=== PATIENT | female | born 1935 | race Caucasian/White ===

== ENCOUNTER 2017-04-09 14:07 | Inpatient (IN) | payer OTHER ==
[~2017-04-09] VITALS: Ht 134.6 cm; Wt 43.3 kg
[2017-04-09 16:00] VITALS: PULSE 60
[2017-04-09 16:01] VITALS: Ht 134.6 cm; Wt 43.3 kg
[2017-04-09 16:19] VITALS: BP 131/62; RESP 20
[2017-04-09 16:37] VITALS: PULSE 50
[2017-04-09] MEDS ORDERED: ONDANSETRON 4 MG INJ IV PRN (17:00)
[2017-04-09] MEDS ORDERED: NACL 0.9% 3 ML SYG IV SCH (17:00)
[2017-04-09] MEDS ORDERED: ACETAMINOPHEN 325 MG TAB PO PRN (17:00)
[2017-04-09] MEDS ORDERED: MAGNESIUM HYDROXIDE 30ML CUP PO PRN (17:00)
--- NOTE | 2017-04-09 17:00 | QN ---
Documentation Comment h and P done [id number]# TANVIR BARCLAY MD Apr 09, 2017 17:00
[2017-04-09 20:00] VITALS: BP 135/66; PULSE 71; PULSE 72
[2017-04-09 20:12] VITALS: BP 135/66; RESP 20
[2017-04-09] MEDS ORDERED: LORAZEPAM 0.5 MG TAB PO PRN (21:30)
[2017-04-09] MEDS: FAMOTIDINE 20 MG INJ IV SCH (21:56)
[2017-04-09] MEDS: LEVETIRACETAM 500 MG TAB PO SCH (21:56)
[2017-04-09 22:00] VITALS: BP 139/89; PULSE 91; RESP 20
[2017-04-10] VITALS (19 sets, daily range): BP systolic 97–161; BP diastolic 48–98; PULSE 71–103; RESP 18–20
--- NOTE | 2017-04-10 01:57 | HP ---
DATE OF ADMISSION: 04/09/2017 Patient is transferred from [facility] for subdural hematoma. HISTORY OF PRESENT ILLNESS: This is an 81-year-old female with a past medical history of Alzheimer' s disease, hypertension, who initially presented to [facility] 3 days ago secondary to he adaches for the past few months. The patient was seen by PCP who ordered MRI of the brain. MRI of the brain had shown subdural hematoma and she was referred to ER and [facility]. Upon ar rival in [facility], CT of the head was done that showed subdural hematoma and patient wa s admitted to ICU. The patient was also seen by neurosurgery and neurology and because of the small bleed, there was no need of surgical intervention. Patient was kept on Keppra initially and was al so started on IV steroids. The patient had a repeat CT of the head done today that showed a left ce rebral convexity 12 mm subacute hematoma tracking along the posterior is not significantly zoran nged in size . When remeasured, similarly chronic appearing right cerebral convexity 9 mm subd ural hematoma is also not significantly changed in size, and patient was sent in to [facility] for insurance reasons. Currently, the patient is in restraints. Patient is awake, alert, orien eden x1, able to follow commands, that is baseline according to the family. PAST MEDICAL HISTORY: 1. Hypertension. 2. Alzheimer's dementia. 3. Subdural hematomas. ALLERGIES: PENICILLIN. MEDICATIONS: At [facility] were: 1. Cholecalciferol. 2. Donepezil 10 mg oral daily. 3. Keppra 500 b.i.d. 4. Lisinopril 10. 5. Memantine 10. 6. Pantoprazole 40. SOCIAL HISTORY: No history of smoking. PAST SURGICAL HISTORY: Finger surgery, hysterectomy and left hand surgery. SOCIAL HISTORY: No history of smoking, alcohol or any drug use. Currently lives at home with her marielena matson. According to the , he helps her with carrying out day to day activities. FAMILY HISTORY: Noncontributory. REVIEW OF SYSTEMS: Unobtainable. PHYSICAL EXAMINATION: VITAL SIGNS: Blood pressure 131/60, heart rate 77, respirations 20, afebrile. GENERAL: Patient is awake, alert, oriented x1, that is normal according to the family. NECK: Supple. No JVD. HEART: Regular rate and rhythm. LUNGS: Clear to auscultate bilaterally. ABDOMEN: Soft, nontender, nondistended. EXTREMITIES: No clubbing, cyanosis or edema. NEUROLOGIC: The patient is able to follow some basic commands, oriented x1. No focal weakness. Se nsation intact. DIAGNOSTIC DATA: No labs currently. ASSESSMENT AND PLAN: This is an 81-year-old female with: 1. 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 2. Hypertension. 3. Alzheimer's dementia. PLAN: At this period of time, patient is admitted to [facility] unit. Per neurosurgery note in [facility], there is no surgery intervention needed. Patient may be monitored in ICU until deemed to be medically stable for either transfer to the floor or rehabilitation. She is cleared from neur osurgical standpoint for transfer. We will continue the patient on Keppra, lisinopril, memantine, d onepezil, pantoprazole. We will call neurosurgery consultation with Dr. Gage here, and we will a lso call neurology consultation here. Rest of the treatment will depend on the patient's hospitaliz ation course. Dictated By: TANVIR PASCUAL/ISAAK Conf#: [id number] DID#: [id number] CC: MEKHI JACKSON MD;*End*
[2017-04-10 08:03] LABS: ABNORMAL IP MESSAGE 1; BASOPHILS % 0.1 % (0.0-2.0); EOSINOPHILS # 0.1 10^3/ul (0.0-0.5); EOSINOPHILS % 0.4 % (0.0-7.0); HEMATOCRIT 32.7 % (37.0-47.0); HEMOGLOBIN 10.2 g/dl (12.0-16.0); LYMPHOCYTES % 14.5 % (15.0-51.0); MEAN CORPUSCULAR HEMOGLOBIN 29.6 pg (29.0-33.0); MEAN CORPUSCULAR HGB CONC 31.2 g/dl (32.0-37.0); MEAN CORPUSCULAR VOLUME 94.8 fl (82.0-101.0); MEAN PLATELET VOLUME 10.8 fl (7.4-10.4); MONOCYTE # 1.5 10^3/ul (0.3-0.9); NEUTROPHIL # 10.2 10^3/ul (1.6-7.5); NEUTROPHILS % 73.6 % (39.0-77.0); PLATELET COUNT 248 10^3/UL (140-415); RED BLOOD COUNT 3.45 10^6/ul (4.20-5.40); RED CELL DISTRIBUTION WIDTH 13.4 % (11.5-14.5); WHITE BLOOD COUNT 13.8 10^3/ul (4.8-10.8)
[2017-04-10 09:03] LABS: POSITIVE DIFF @See below
[2017-04-10 09:22] LABS: ALBUMIN/GLOBULIN RATIO 1.29; BILIRUBIN,INDIRECT 0.3 mg/dl (0-1.1); BILIRUBIN,TOTAL 0.3 mg/dl (0.2-1.3); CREATININE 0.64 mg/dl (0.44-1.00); MAGNESIUM 1.9 mg/dl (1.7-2.5); PHOSPHORUS 2.5 mg/dl (2.5-4.9); POTASSIUM 4.8 mmol/L (3.5-5.1); TOTAL PROTEIN 7.1 g/dl (6.1-8.1)
[2017-04-10] MEDS: FAMOTIDINE 20 MG INJ IV SCH ×2 (09:22→21:44)
[2017-04-10] MEDS: LEVETIRACETAM 500 MG TAB PO SCH ×2 (09:22→21:44)
[2017-04-10] MEDS: MEMANTINE 10 MG TAB PO SCH (09:23)
[2017-04-10] MEDS: DONEPEZIL 10 MG TAB PO SCH (09:24)
[2017-04-10] MEDS: LISINOPRIL 10 MG TAB PO SCH (09:26)
--- NOTE | 2017-04-10 11:22 | PN ---
Date/Time of Note Date/Time of Note DATE: 04/10/17 TIME: 11:22 Assessment/Plan VTE Prophylaxis VTE Prophylaxis Intervention: contraindicated Lines/Catheters IV Catheter Type (from Nrs): Saline Lock Urinary Cath still in place: Yes Reason Cath still needed: urinary retention Assessment/Plan Chief Complaint/Hosp Course This is an 81-year-old female with: 1. 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 2. Hypertension. 3. Alzheimer's dementia. 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 - c/w Keppra - restraint - Bed rest Problems: Subjective 24 Hr Interval Summary Free Text/Dictation No new complains Exam/Review of Systems Vital Signs Vitals Vital Signs Date Time Temp Pulse Resp B/P Pulse Ox O2 Delivery O2 Flow Rate FiO2 04/10/17 08:00 97.5 80 20 140/63 99 Intake and Output 04/09/17 04/09/17 04/10/17 15:00 23:00 07:00 Intake Total 500 ml Output Total 850 ml Balance -350 ml Exam awake and alert only oriented to her name not to hospital or the date restrained and attempting to get out of bed Reflexes 2+ throughout toes down coord unable to assess Results Result Diagram: 04/10/17 0653 04/10/17 0657 Results 24 hrs Laboratory Tests Test 04/10/17 06:53 04/10/17 06:57 White Blood Count 13.8 H Red Blood Count 3.45 L Hemoglobin 10.2 L Hematocrit 32.7 L Mean Corpuscular Volume 94.8 Mean Corpuscular Hemoglobin 29.6 Mean Corpuscular Hemoglobin Concent 31.2 L Red Cell Distribution Width 13.4 Platelet Count 248 Mean Platelet Volume 10.8 H Neutrophils % 73.6 Lymphocytes % 14.5 L Monocytes % 11.0 Eosinophils % 0.4 Basophils % 0.1 Nucleated Red Blood Cells % 0.0 Neutrophils # 10.2 H Lymphocytes # 2.0 Monocytes # 1.5 H Eosinophils # 0.1 Basophils # 0.0 Nucleated Red Blood Cells # 0.0 Sodium Level 146 H Potassium Level 4.8 Chloride Level 109 Carbon Dioxide Level 24 Anion Gap 18 H Blood Urea Nitrogen 19 Creatinine 0.64 Glucose Level 101 Calcium Level 9.0 Phosphorus Level 2.5 Magnesium Level 1.9 Total Bilirubin 0.3 Direct Bilirubin 0.00 Indirect Bilirubin 0.3 Aspartate Amino Transf (AST/SGOT) 31 Alanine Aminotransferase (ALT/SGPT) 68 Alkaline Phosphatase 114 Total Protein 7.1 Albumin 4.0 Globulin 3.10 Albumin/Globulin Ratio 1.29 Medications Medications Current Medications Ondansetron HCl (Zofran Inj) 4 mg Q6H PRN IV NAUSEA AND/OR VOMITING; Start at 17:00 Acetaminophen (Tylenol Tab) 650 mg Q6H PRN PO PAIN LEVEL 1-3 OR FEVER; Start 04/09/17 at 17:00 Magnesium Hydroxide (Milk Of Mag) 30 ml DAILY PRN PO CONSTIPATION; Start 04/09 at 17:00 Famotidine (Pepcid Iv) 20 mg Q12 IV Last administered on 04/10/17 09:22; Admin Dose 20 MG; Start 04/09/17 at 21:00 Donepezil HCl (Aricept) 10 mg DAILY PO Last administered on 04/10/17 09:24; Admin Dose 10 MG; Start 04/10/17 at 09:00 Levetiracetam (Keppra) 500 mg BID PO Last administered on 04/10/17 09:22; Admin Dose 500 MG; Start 04/09/17 at 21:00 Lisinopril (Zestril) 10 mg DAILY PO Last administered on 04/10/17 09:26; Admin Dose 10 MG; Start 04/10/17 at 09:00 Memantine (Namenda) 10 mg DAILY PO Last administered on 04/10/17 09:23; Admin Dose 10 MG; Start 04/10/17 at 09:00 TANVIR BARCLAY MD Apr 10, 2017 11:22
--- NOTE | 2017-04-10 12:09 | CONS ---
Date/Time of Note Date/Time of Note DATE: 04/10/17 TIME: 12:04 Assessment/Plan Assessment/Plan Chief Complaint/Hosp Course 81 yo female with headaches for a few months admitted to outside hospital found to have bilateral subdural hematoma. No surgical intervention was advised she was placed on seizure ppx. Recommendations: continue off antiplatelet agents avoid any NSAIDS Keppra may taper off after 7 days unable to view imaging from OSH would recommend repeat Head CT to ensure stability DVT ppx SCD Problems: Consultation Date/Type/Reason Admit Date/Time Apr 09, 2017 at 15:26 Date of Consultation: Apr 10, 2017 Type of Consultation: Neurology Reason for Consultation evaluation for SDH Referring Provider: TANVIR BARCLAY MD Hx of Present Illness 81 yo female with hx of advanced dementia, HTN presented to [facility] 3 days ago for headaches ongoing for a few months. MRI Brain was done there that showed subdural hematoma, evaluated by neurosurgery and neurology there no surgical intervention was advised. Per reported she has left cerebral convexity 12 mm subacte hematoma, right cerebral convex hematoma 9 mm not changed in size. She was started on Keppra 500 mg q12h and tx here for further care. She remains agitated and delirious. agitated delirious Social History Smoking Status: Never smoker Exam/Review of Systems Vital Signs Vitals Vital Signs Date Time Temp Pulse Resp B/P Pulse Ox O2 Delivery O2 Flow Rate FiO2 04/10/17 08:00 97.5 80 20 140/63 99 Intake and Output 04/09/17 04/09/17 04/10/17 15:00 23:00 07:00 Intake Total 500 ml Output Total 850 ml Balance -350 ml Exam awake and alert thin appears stated age only oriented to her name not to hospital or the date restrained and attempting to get out of bed CN: CASSY blinks to threat no facial asymmetry Motor: anti-gravity in both arms and legs w/d appropriately Reflexes 2+ throughout toes down coord unable to assess Results Result Diagram: 04/10/17 0653 04/10/17 0657 Results 24 hrs Laboratory Tests Test 04/10/17 06:53 04/10/17 06:57 White Blood Count 13.8 H Red Blood Count 3.45 L Hemoglobin 10.2 L Hematocrit 32.7 L Mean Corpuscular Volume 94.8 Mean Corpuscular Hemoglobin 29.6 Mean Corpuscular Hemoglobin Concent 31.2 L Red Cell Distribution Width 13.4 Platelet Count 248 Mean Platelet Volume 10.8 H Neutrophils % 73.6 Lymphocytes % 14.5 L Monocytes % 11.0 Eosinophils % 0.4 Basophils % 0.1 Nucleated Red Blood Cells % 0.0 Neutrophils # 10.2 H Lymphocytes # 2.0 Monocytes # 1.5 H Eosinophils # 0.1 Basophils # 0.0 Nucleated Red Blood Cells # 0.0 Sodium Level 146 H Potassium Level 4.8 Chloride Level 109 Carbon Dioxide Level 24 Anion Gap 18 H Blood Urea Nitrogen 19 Creatinine 0.64 Glucose Level 101 Calcium Level 9.0 Phosphorus Level 2.5 Magnesium Level 1.9 Total Bilirubin 0.3 Direct Bilirubin 0.00 Indirect Bilirubin 0.3 Aspartate Amino Transf (AST/SGOT) 31 Alanine Aminotransferase (ALT/SGPT) 68 Alkaline Phosphatase 114 Total Protein 7.1 Albumin 4.0 Globulin 3.10 Albumin/Globulin Ratio 1.29 Medications Medications Current Medications Ondansetron HCl (Zofran Inj) 4 mg Q6H PRN IV NAUSEA AND/OR VOMITING; Start at 17:00 Acetaminophen (Tylenol Tab) 650 mg Q6H PRN PO PAIN LEVEL 1-3 OR FEVER; Start 04/09/17 at 17:00 Magnesium Hydroxide (Milk Of Mag) 30 ml DAILY PRN PO CONSTIPATION; Start 04/09 at 17:00 Famotidine (Pepcid Iv) 20 mg Q12 IV Last administered on 04/10/17 09:22; Admin Dose 20 MG; Start 04/09/17 at 21:00 Donepezil HCl (Aricept) 10 mg DAILY PO Last administered on 04/10/17 09:24; Admin Dose 10 MG; Start 04/10/17 at 09:00 Levetiracetam (Keppra) 500 mg BID PO Last administered on 04/10/17 09:22; Admin Dose 500 MG; Start 04/09/17 at 21:00 Lisinopril (Zestril) 10 mg DAILY PO Last administered on 04/10/17 09:26; Admin Dose 10 MG; Start 04/10/17 at 09:00 Memantine (Namenda) 10 mg DAILY PO Last administered on 04/10/17 09:23; Admin Dose 10 MG; Start 10/19/17 at 09:00 STELLA AVILES MD Apr 10, 2017 12:09
--- NOTE | 2017-04-10 12:48 | RADRPT ---
PROCEDURE: CT BRAIN WITHOUT CONTRAST. CLINICAL INDICATION: Headache. History of subdural. Evaluate progression. TECHNIQUE: A CT of the brain was performed on a multidetector high-resolution CT scanner utilizing axial imaging from the skull base through the vertex without IV contrast. Multiplanar reformatted images were made. Images were reviewed on a PACS workstation. The CTDIvol is 89 mGy and the DLP is 720.2 mGycm. One or more of the following dose reduction techniques were used: - Automated exposure control. - Adjustment of the mA and/or kV according to patient size. - Use of iterative reconstruction technique. COMPARISON: None FINDINGS: The posterior fossa structures are unremarkable. The neeraj, midbrain, and medulla appear to be with n ormal limits. There is a moderate-sized left-sided acute on subacute subdural hematoma, with widest diameter measu ring up to 1.3 cm. Layering acute component is noted within the left frontal region and posterior oc cipital regions. There is diffuse cortical atrophy. No evidence of mass effect or midline shift. Int racranial atherosclerotic calcifications are noted. There also appears to be a small right-sided sub acute to chronic high parietal subdural hematoma, with widest diameter measuring 5 mm, best seen on coronal reconstruction image number 57. The visualized paranasal sinuses are clear. The mastoid air cells are well-aerated. The calvarium is unremarkable. IMPRESSION: 1. Moderate sized left-sided acute on subacute subdural hematoma, with widest diameter measuring up to 1.3 cm. Acute components are noted within the left frontal and left occipital regions. 2. Diffuse cortical atrophy. There is no evidence of significant mass effect or midline shift. 3. Probable small right-sided subacute to chronic high right parietal subdural hematoma, widest diam eter measuring 5 mm and best seen on coronal reconstruction. 4. No priors for comparison to assess for progression. RPTAT: AARR Physician Pipe Date Time Electronically viewed and signed by Physician Pipe on 04/10/2017 12:48 JL/
[2017-04-11] VITALS (16 sets, daily range): BP systolic 113–149; BP diastolic 56–64; PULSE 63–121; RESP 16–20
[2017-04-11] MEDS: DONEPEZIL 10 MG TAB PO SCH (08:55)
[2017-04-11] MEDS: FAMOTIDINE 20 MG INJ IV SCH (08:55)
[2017-04-11] MEDS: LEVETIRACETAM 500 MG TAB PO SCH (08:55)
[2017-04-11] MEDS: MEMANTINE 10 MG TAB PO SCH (08:56)
[2017-04-11] MEDS: LISINOPRIL 10 MG TAB PO SCH (08:56)
--- NOTE | 2017-04-11 13:32 | CONS ---
Date/Time of Note Date/Time of Note DATE: 04/11/17 TIME: 13:29 Consult Date/Type/Reason Admit Date/Time Apr 09, 2017 at 15:26 Initial Consult Date 04/10/17 Type of Consultation: Neurology Ordering Provider: TANVIR BARCLAY MD Subjective No events, no headaches, repeat CT pending. Sleepy on Keppra Objective Vital Signs Date Time Temp Pulse Resp B/P Pulse Ox O2 Delivery O2 Flow Rate FiO2 04/11/17 12:00 77 04/11/17 11:54 97.7 20 149/64 99 Intake and Output 04/10/17 04/10/17 04/11/17 15:00 23:00 07:00 Intake Total 350 ml 450 ml Output Total 750 ml 700 ml Balance -400 ml -250 ml Results/Medications Result Diagram: 04/10/17 0653 04/10/17 0657 Medications Current Medications Ondansetron HCl (Zofran Inj) 4 mg Q6H PRN IV NAUSEA AND/OR VOMITING; Start at 17:00 Acetaminophen (Tylenol Tab) 650 mg Q6H PRN PO PAIN LEVEL 1-3 OR FEVER; Start 04/09/17 at 17:00 Magnesium Hydroxide (Milk Of Mag) 30 ml DAILY PRN PO CONSTIPATION; Start 04/09 at 17:00 Famotidine (Pepcid Iv) 20 mg Q12 IV Last administered on 04/11/17 08:55; Admin Dose 20 MG; Start 04/09/17 at 21:00 Donepezil HCl (Aricept) 10 mg DAILY PO Last administered on 04/11/17 08:55; Admin Dose 10 MG; Start 04/10/17 at 09:00 Levetiracetam (Keppra) 500 mg BID PO Last administered on 04/11/17 08:55; Admin Dose 500 MG; Start 04/09/17 at 21:00 Lisinopril (Zestril) 10 mg DAILY PO Last administered on 04/11/17 08:56; Admin Dose 10 MG; Start 04/10/17 at 09:00 Memantine (Namenda) 10 mg DAILY PO Last administered on 04/11/17 08:56; Admin Dose 10 MG; Start 04/10/17 at 09:00 Assessment/Plan Chief Complaint/Hosp Course Exam lethargic, arousable becomes awake and alert thin appears stated age only oriented to her name not to hospital or the date CN: CASSY blinks to threat no facial asymmetry, pupils 3-2 mm Motor: anti-gravity in both arms and legs w/d appropriately Reflexes 2+ throughout toes down coord OK UE A/P: Chronic headaches. Acute on chronic SDH. Repeat CT pending. Decrease Keppra 250 bid, too sleepy per family Problems: DESTIN PECK MD Apr 11, 2017 13:32
--- NOTE | 2017-04-11 16:05 | PN ---
Date/Time of Note Date/Time of Note DATE: 04/11/17 TIME: 15:59 Assessment/Plan VTE Prophylaxis VTE Prophylaxis Intervention: contraindicated VTE Contraindication Reason: bleeding Lines/Catheters IV Catheter Type (from Nrsg): Saline Lock Urinary Cath still in place: No Assessment/Plan Chief Complaint/Hosp Course This is an 81-year-old female with: 1. Bilateral Acute on chronic subdural hematomas with minimal bleed and compression due to underlying atrophy. 2. Hypertension.controlled 3. Alzheimer's dementia. PLAN: - Repeat CT head to be done today per Neuro - Called Dr Contreras to see pt, spoke to Dr Gage who would not see patient as not erp consultant panel, will be seen - Decrease Keppra per Neuro - PT if cleared with Neurosurg - d/c Mcclain - No blood thinners Problems: Subjective 24 Hr Interval Summary Free Text/Dictation Pt feeling better Off restraints Having puree diet Exam/Review of Systems Vital Signs Vitals Vital Signs Date Time Temp Pulse Resp B/P Pulse Ox O2 Delivery O2 Flow Rate FiO2 04/11/17 12:00 77 04/11/17 11:54 97.7 20 149/64 99 Intake and Output 04/10/17 04/10/17 04/11/17 15:00 23:00 07:00 Intake Total 350 ml 450 ml Output Total 750 ml 700 ml Balance -400 ml -250 ml Exam Awake thin appears stated ageonly oriented to her name CN: CASSY blinks to threat no facial asymmetry, pupils 3-2 mm Motor: anti-gravity in both arms and legs w/d appropriately Reflexes 2+ CVS: Regular rate and rthym Resp:CTAB Abdomen:soft, non tender Results Result Diagram: 04/10/17 0653 04/10/17 0657 Medications Medications Current Medications Ondansetron HCl (Zofran Inj) 4 mg Q6H PRN IV NAUSEA AND/OR VOMITING; Start at 17:00 Acetaminophen (Tylenol Tab) 650 mg Q6H PRN PO PAIN LEVEL 1-3 OR FEVER; Start 04/09/17 at 17:00 Magnesium Hydroxide (Milk Of Mag) 30 ml DAILY PRN PO CONSTIPATION; Start 04/09 at 17:00 Donepezil HCl (Aricept) 10 mg DAILY PO Last administered on 04/11/17t 08:55; Admin Dose 10 MG; Start 04/10/17 at 09:00 Lisinopril (Zestril) 10 mg DAILY PO Last administered on 04/11/17 08:56; Admin Dose 10 MG; Start 04/10/17 at 09:00 Memantine (Namenda) 10 mg DAILY PO Last administered on 04/11/17 08:56; Admin Dose 10 MG; Start 04/10/17 at 09:00 Levetiracetam (Keppra) 250 mg BID PO ; Start 04/11/17 at 21:00 Famotidine (Pepcid) 20 mg DAILY PO ; Start 04/12/17 at 09:00 TANVIR BARCLAY MD Apr 11, 2017 16:05
--- NOTE | 2017-04-11 17:58 | RADRPT ---
PROCEDURE: CT Brain without contrast. CLINICAL INDICATION: Neurologic deficit TECHNIQUE: A CT of the brain was performed on multidetector high-resolution CT scanner utilizing a xial sections from the skull base through the vertex without contrast. One or more of the following dose reduction techniques were used: Automated exposure control, Adjustment of the mA and/or kV acc ording to patient size, and/or use of iterative reconstruction technique. DOSE: CTDI = 45 mGy and the DLP = 720 mGy-cm. COMPARISON: Head CT yesterday FINDINGS: Left cerebral convexity mixed density 1.3 cm subdural hematoma is not significantly changed. Right c erebral convexity 9 mm mixed density subdural hematoma is not significantly changed. No evidence of new bleeding or progressive mass effect. No significant midline shift. Mild hypoattenuation of the c erebral white matter is compatible with chronic microvascular ischemic changes. Vascular calcificati ons. Prominence of the cortical sulci and ventricles are related to moderate cerebral volume loss. No significant opacification of the visualized paranasal sinuses or mastoids. IMPRESSION: Subacute on chronic bilateral cerebral convexity subdural hematomas, larger on the left, are not sig nificantly changed in size. No evidence of new bleeding or significant midline shift. Chronic microvascular disease and intracranial atherosclerosis. RPTAT: AA .Francisco J Boyd MD, Date Time Electronically viewed and signed by .Francisco J Boyd MD, MD on 04/11/2017 17:58 .T/
[2017-04-11] MEDS: LEVETIRACETAM 250 MG TAB PO SCH (21:46)
[2017-04-12] VITALS (12 sets, daily range): BP systolic 90–124; BP diastolic 51–61; PULSE 64–86; RESP 15–19
[2017-04-12] MEDS: LISINOPRIL 10 MG TAB PO SCH (08:57)
[2017-04-12] MEDS: DONEPEZIL 10 MG TAB PO SCH (08:59)
[2017-04-12] MEDS: MEMANTINE 10 MG TAB PO SCH (08:59)
[2017-04-12] MEDS: LEVETIRACETAM 250 MG TAB PO SCH ×2 (08:59→21:01)
[2017-04-12] MEDS: FAMOTIDINE 20 MG TAB PO SCH (08:59)
--- NOTE | 2017-04-12 15:35 | PN ---
Date/Time of Note Date/Time of Note DATE: 04/12/17 TIME: 15:33 Assessment/Plan VTE Prophylaxis VTE Prophylaxis Intervention: anti-embolic stocking Lines/Catheters IV Catheter Type (from Nrs): Saline Lock Urinary Cath still in place: No Assessment/Plan Chief Complaint/Hosp Course 1. 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 2. Hypertension, controlled 3. Alzheimer's dementia. 4. cachexia. 5. Hypernatremia 6. SIRS Problems: Assessment/Plan 1. Continue current regime 2. lactic acid 3. Start D5 W 4. Urinalysis Subjective 24 Hr Interval Summary Subjective hx not possible: pt non-verbal Cardiovascular: No chest pain, No edema, No lightheadedness, No no complaints, No orthopenea, No other, No palpitations, No paroxysmal nocturnal dyspnea Genitourinary: no complaints Exam/Review of Systems Vital Signs Vitals Vital Signs Date Time Temp Pulse Resp B/P Pulse Ox O2 Delivery O2 Flow Rate FiO2 04/12/17 12:14 86 04/12/17 11:38 98.1 19 111/57 100 Intake and Output 04/11/17 04/11/17 04/12/17 15:00 23:00 07:00 Intake Total 700 ml 450 ml Output Total 400 ml Balance 300 ml 450 ml Exam Constitutional: alert, frail Neck: supple Respiratory: diminished breath sounds Cardiovascular: regular rate and rhythm Results Result Diagram: 04/10/17 0653 04/10/17 0657 Medications Medications Current Medications Ondansetron HCl (Zofran Inj) 4 mg Q6H PRN IV NAUSEA AND/OR VOMITING; Start at 17:00 Acetaminophen (Tylenol Tab) 650 mg Q6H PRN PO PAIN LEVEL 1-3 OR FEVER; Start 04/09/17 at 17:00 Magnesium Hydroxide (Milk Of Mag) 30 ml DAILY PRN PO CONSTIPATION; Start 04/09 at 17:00 Donepezil HCl (Aricept) 10 mg DAILY PO Last administered on 04/12/17 08:59; Admin Dose 10 MG; Start 04/10/17 at 09:00 Lisinopril (Zestril) 10 mg DAILY PO Last administered on 04/11/17 08:56; Admin Dose 10 MG; Start 10/19/17 at 09:00 Memantine (Namenda) 10 mg DAILY PO Last administered on 04/12/17 08:59; Admin Dose 10 MG; Start 04/10/17 at 09:00 Levetiracetam (Keppra) 250 mg BID PO Last administered on 04/12/17 08:59; Admin Dose 250 MG; Start 04/11/17 at 21:00 Famotidine (Pepcid) 20 mg DAILY PO Last administered on 04/12/17 08:59; Admin Dose 20 MG; Start 04/12/17 at 09:00 KOSTAS MELENDEZ Apr 12, 2017 15:35
[2017-04-12] MEDS: DEXTROSE 5% 1,000 ML IV SCH (16:00)
--- NOTE | 2017-04-12 23:27 | CONS ---
Date/Time of Note Date/Time of Note DATE: 04/12/17 TIME: 23:27 Assessment/Plan Assessment/Plan Additional Assessment/Plan Date of consultation: 04/11/2017 Requesting physician: Consulting service: Neurosurgery This is a 81-year-old female with past medical history significant for dementia , hypertension was complaining of some headaches and her primary care physician as part of the workup ordered an MRI of the brain that by report showed a "subdural hematoma." The patient was seen at [facility] and evaluated by neurology/neurosurgery who by report indicated that there was no neurosurgical intervention indicated. She was put on Keppra for seizure prophylaxis and given some steroids. The patient was subsequently transferred to [facility] because of insurance reasons. Dr. Zurita indicated to me that she initially consulted Dr. Orellana 2 days ago for neurosurgical consultation who was unable to see the patient. She has subsequently requested that I evaluate the patient from a neurosurgical perspective. According to the patient's and her daughter she is currently at her baseline neurologic status where she is confused but alert. She requires care at home for basic activities of daily living. She has not been witnessed to have any seizures or convulsions. Past medical history: See above Medications: The patient's medications have been noted in the chart and reviewed. Allergies: Penicillin Social history: According to the daughter the patient lives at home with family. The family denies that the patient smokes tobacco, drinks alcoholic beverages or uses illicit or recreational drugs Review of systems: Unable to obtain as the patient appears to be confused Physical examination: The patient is seen at bedside next her . She is resting comfortably. She readily opens her eyes to voice. She is oriented to name only and according to family this is at her baseline. Her face appears to be symmetric. Muscle bulk is decreased bilateral upper and lower extremities throughout. Muscle tone is normal bilateral upper and lower extremities. The patient appears to be moving her upper and lower extremities spontaneously and equally but the patient does not seem to want to follow commands. Deep tendon reflexes are 2+ bilateral upper and lower extremities. Gait testing has been deferred as the patient is uncooperative. Imaging: The patient has received a CT of the head without contrast done yesterday as well as one done today that shows diffuse brain atrophy. There is a left-sided subacute/chronic subdural hematoma mostly over the convexity that does not appear to cause any significant localized mass effect or midline shift. The patient also has bilateral extra-axial hypodensities that are likely to be subdural hygromas rather than chronic subdural hematomas especially given the patient's diffuse brain atrophy. There is no sulcal effacement. The basal cisterns are open. Assessment/plan: I've spoken in great detail with the patient's daughter as well as the patient's with the help of one of the SOCIAL MEDIA COORDINATOR's who has interpreted in [place] for me. Given the fact that the patient is at her baseline neurologic status with baseline dementia without any focal neurologic deficit and given the relatively small and stable left frontal subacute/chronic subdural hematoma, there is no acute neurosurgical intervention indicated. It is also questionable whether the patient needs to be on any long-term seizure prophylaxis given the fact that she has not had any history of convulsions or seizures. The patient may be discharged from a neurosurgical perspective at any time. The patient should follow-up with neurosurgery with a new CT of the head without contrast in 3-4 weeks to further evaluate the evolution of the subdural hematoma. If the patient develops any neurologic deficit she should be brought to the emergency department. I have communicated this information in great detail to the patient's family as well as the consulting physician, Dr. Zurita. ARLET MOCTEZUMA MD Apr 12, 2017 23:27
[2017-04-13] VITALS (19 sets, daily range): BP systolic 117–147; BP diastolic 55–86; PULSE 69–108; RESP 16–20
[2017-04-13 08:30] LABS: BASOPHILS % 0.3 % (0.0-2.0); EOSINOPHILS # 0.4 10^3/ul (0.0-0.5); HEMATOCRIT 31.4 % (37.0-47.0); HEMOGLOBIN 10.5 g/dl (12.0-16.0); LYMPHOCYTES # 2.4 10^3/ul (0.8-2.9); LYMPHOCYTES % 20.4 % (15.0-51.0); MEAN CORPUSCULAR HEMOGLOBIN 30.7 pg (29.0-33.0); MEAN CORPUSCULAR HGB CONC 33.4 g/dl (32.0-37.0); MEAN CORPUSCULAR VOLUME 91.8 fl (82.0-101.0); MEAN PLATELET VOLUME 9.5 fl (7.4-10.4); MONOCYTE # 0.9 10^3/ul (0.3-0.9); MONOCYTES % 7.9 % (0.0-11.0); NEUTROPHILS % 67.6 % (39.0-77.0); PLATELET COUNT 322 10^3/UL (140-415); RED BLOOD COUNT 3.42 10^6/ul (4.20-5.40); RED CELL DISTRIBUTION WIDTH 12.7 % (11.5-14.5); WHITE BLOOD COUNT 11.9 10^3/ul (4.8-10.8)
[2017-04-13 08:59] LABS: CALCIUM 9.9 mg/dl (8.4-10.2); CREATININE 0.58 mg/dl (0.44-1.00); POTASSIUM 4.2 mmol/L (3.5-5.1)
[2017-04-13] MEDS: LISINOPRIL 10 MG TAB PO SCH (09:00)
[2017-04-13] MEDS: DONEPEZIL 10 MG TAB PO SCH (09:00)
[2017-04-13] MEDS: MEMANTINE 10 MG TAB PO SCH (09:00)
[2017-04-13] MEDS: FAMOTIDINE 20 MG TAB PO SCH (09:00)
[2017-04-13] MEDS: LEVETIRACETAM 250 MG TAB PO SCH ×3 (09:00→21:18)
--- NOTE | 2017-04-13 12:55 | PN ---
Date/Time of Note Date/Time of Note DATE: 04/13/17 TIME: 12:53 Assessment/Plan VTE Prophylaxis VTE Prophylaxis Intervention: ambulation, SCD's Lines/Catheters IV Catheter Type (from Nrs): Peripheral IV Urinary Cath still in place: No Assessment/Plan Chief Complaint/Hosp Course 1. 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 2. Hypertension, controlled 3. Alzheimer's dementia. 4. cachexia. 5. Hypernatremia 6. SIRS Problems: Assessment/Plan 1. continue current regime 2.Pt was seen by neurosurgeon Subjective 24 Hr Interval Summary Constitutional: improved, no complaints Musculoskeletal: no complaints, restricted range of motion Exam/Review of Systems Vital Signs Vitals Vital Signs Date Time Temp Pulse Resp B/P Pulse Ox O2 Delivery O2 Flow Rate FiO2 04/13/17 12:00 108 04/13/17 11:48 98.8 18 138/63 98 04/13/17 06:06 Room Air Intake and Output 04/12/17 04/12/17 04/13/17 14:59 22:59 06:59 Intake Total 580 ml 500 ml Balance 580 ml 500 ml Exam Constitutional: alert Eyes: nl conjunctiva ENMT: nl external ears & nose Neck: supple Respiratory: clear to auscultation Cardiovascular: regular rate and rhythm Results Result Diagram: 04/13/17 0804 04/13/17 0804 Results 24 hrs Laboratory Tests Test 04/13/17 08:04 White Blood Count 11.9 H Red Blood Count 3.42 L Hemoglobin 10.5 L Hematocrit 31.4 L Mean Corpuscular Volume 91.8 Mean Corpuscular Hemoglobin 30.7 Mean Corpuscular Hemoglobin Concent 33.4 Red Cell Distribution Width 12.7 Platelet Count 322 # Mean Platelet Volume 9.5 Neutrophils % 67.6 Lymphocytes % 20.4 Monocytes % 7.9 Eosinophils % 3.0 Basophils % 0.3 Nucleated Red Blood Cells % 0.0 Neutrophils # 8.0 H Lymphocytes # 2.4 Monocytes # 0.9 Eosinophils # 0.4 Basophils # 0.0 Nucleated Red Blood Cells # 0.0 Sodium Level 143 Potassium Level 4.2 Chloride Level 106 Carbon Dioxide Level 27 Anion Gap 14 Blood Urea Nitrogen 16 Creatinine 0.58 Glucose Level 109 Lactic Acid Level 1.6 Calcium Level 9.9 Medications Medications Current Medications Ondansetron HCl (Zofran Inj) 4 mg Q6H PRN IV NAUSEA AND/OR VOMITING; Start at 17:00 Acetaminophen (Tylenol Tab) 650 mg Q6H PRN PO PAIN LEVEL 1-3 OR FEVER; Start 04/09/17 at 17:00 Magnesium Hydroxide (Milk Of Mag) 30 ml DAILY PRN PO CONSTIPATION; Start 04/09 at 17:00 Donepezil HCl (Aricept) 10 mg DAILY PO Last administered on 04/13/17 09:00; Admin Dose 10 MG; Start 04/10/17 at 09:00 Lisinopril (Zestril) 10 mg DAILY PO Last administered on 04/13/17 09:00; Admin Dose 10 MG; Start 04/10/17 at 09:00 Memantine (Namenda) 10 mg DAILY PO Last administered on 04/13/17 09:00; Admin Dose 10 MG; Start 04/10/17 at 09:00 Levetiracetam (Keppra) 250 mg BID PO Last administered on 04/13/17 09:00; Admin Dose 250 MG; Start 04/11/17 at 21:00 Famotidine 20 mg 20 mg DAILY PO Last administered on 04/13/17 09:00; Admin Dose 20 MG; Start 04/12/17 at 09:00 Dextrose (D5W) 1,000 ml @ 40 mls/hr Q24H IV Last administered on 04/12/17 16 :00; Admin Dose 40 MLS/HR; Start 04/12/17 at 16:00 KOSTAS MELENDEZ Apr 13, 2017 12:55
--- NOTE | 2017-04-13 14:31 | CONS ---
Date/Time of Note Date/Time of Note DATE: 04/13/17 TIME: 14:28 Consult Date/Type/Reason Admit Date/Time Apr 09, 2017 at 15:26 Initial Consult Date 04/10/17 Type of Consultation: Neurology Ordering Provider: TANVIR BARCLAY MD Subjective combative, more confused last night. Now at baseline per family. No DURHAM Objective Vital Signs Date Time Temp Pulse Resp B/P Pulse Ox O2 Delivery O2 Flow Rate FiO2 04/13/17 12:00 108 04/13/17 11:48 98.8 18 138/63 98 04/13/17 06:06 Room Air Intake and Output 04/12/17 04/12/17 04/13/17 15:00 23:00 07:00 Intake Total 580 ml 500 ml Balance 580 ml 500 ml Results/Medications Result Diagram: 04/13/17 0804 04/13/17 0804 Results 24 hrs Laboratory Tests Test 04/13/17 08:04 White Blood Count 11.9 H Red Blood Count 3.42 L Hemoglobin 10.5 L Hematocrit 31.4 L Mean Corpuscular Volume 91.8 Mean Corpuscular Hemoglobin 30.7 Mean Corpuscular Hemoglobin Concent 33.4 Red Cell Distribution Width 12.7 Platelet Count 322 # Mean Platelet Volume 9.5 Neutrophils % 67.6 Lymphocytes % 20.4 Monocytes % 7.9 Eosinophils % 3.0 Basophils % 0.3 Nucleated Red Blood Cells % 0.0 Neutrophils # 8.0 H Lymphocytes # 2.4 Monocytes # 0.9 Eosinophils # 0.4 Basophils # 0.0 Nucleated Red Blood Cells # 0.0 Sodium Level 143 Potassium Level 4.2 Chloride Level 106 Carbon Dioxide Level 27 Anion Gap 14 Blood Urea Nitrogen 16 Creatinine 0.58 Glucose Level 109 Lactic Acid Level 1.6 Calcium Level 9.9 Medications Current Medications Ondansetron HCl (Zofran Inj) 4 mg Q6H PRN IV NAUSEA AND/OR VOMITING; Start at 17:00 Acetaminophen (Tylenol Tab) 650 mg Q6H PRN PO PAIN LEVEL 1-3 OR FEVER; Start 04/09/17 at 17:00 Magnesium Hydroxide (Milk Of Mag) 30 ml DAILY PRN PO CONSTIPATION; Start 04/09 at 17:00 Donepezil HCl (Aricept) 10 mg DAILY PO Last administered on 04/13/17t 09:00; Admin Dose 10 MG; Start 04/10/17 at 09:00 Lisinopril (Zestril) 10 mg DAILY PO Last administered on 04/13/17 09:00; Admin Dose 10 MG; Start 04/10/17 at 09:00 Memantine (Namenda) 10 mg DAILY PO Last administered on 04/13/17 09:00; Admin Dose 10 MG; Start 04/10/17 at 09:00 Levetiracetam (Keppra) 250 mg BID PO Last administered on 04/13/17 09:00; Admin Dose 250 MG; Start 04/11/17 at 21:00 Famotidine 20 mg 20 mg DAILY PO Last administered on 04/13/17 09:00; Admin Dose 20 MG; Start 04/12/17 at 09:00 Dextrose (D5W) 1,000 ml @ 40 mls/hr Q24H IV Last administered on 04/12/17 16 :00; Admin Dose 40 MLS/HR; Start 04/12/17 at 16:00 Assessment/Plan Chief Complaint/Hosp Course Exam lethargic, arousable becomes awake and alert, x 1 thin appears stated age only oriented to her name not to hospital or the date CN: CASSY blinks to threat no facial asymmetry, pupils 3-2 mm Motor: anti-gravity in both arms and legs w/d appropriately Reflexes 2+ throughout toes down coord OK UE A/P: Chronic headaches. Acute on chronic SDH. stable on CTx2. Never seizures. Per family at baseline now. OK to d/c, if cleared by NS. Keppra 250 bid x2 weeks. Problems: EDSTIN PECK MD Apr 13, 2017 14:31
[2017-04-13] MEDS: DEXTROSE 5% 1,000 ML IV SCH (16:05)
[2017-04-14] VITALS (14 sets, daily range): BP systolic 116–154; BP diastolic 56–70; PULSE 52–84; RESP 16–20
[2017-04-14 08:55] LABS: BASOPHILS % 0.5 % (0.0-2.0); EOSINOPHILS # 0.4 10^3/ul (0.0-0.5); EOSINOPHILS % 5.4 % (0.0-7.0); HEMATOCRIT 32.1 % (37.0-47.0); HEMOGLOBIN 10.2 g/dl (12.0-16.0); LYMPHOCYTES # 1.9 10^3/ul (0.8-2.9); LYMPHOCYTES % 25.7 % (15.0-51.0); MEAN CORPUSCULAR HEMOGLOBIN 29.8 pg (29.0-33.0); MEAN CORPUSCULAR HGB CONC 31.8 g/dl (32.0-37.0); MEAN CORPUSCULAR VOLUME 93.9 fl (82.0-101.0); MEAN PLATELET VOLUME 11.4 fl (7.4-10.4); MONOCYTE # 0.7 10^3/ul (0.3-0.9); MONOCYTES % 8.7 % (0.0-11.0); NEUTROPHIL # 4.4 10^3/ul (1.6-7.5); RED BLOOD COUNT 3.42 10^6/ul (4.20-5.40); RED CELL DISTRIBUTION WIDTH 13.3 % (11.5-14.5); WHITE BLOOD COUNT 7.5 10^3/ul (4.8-10.8)
[2017-04-14 09:00] LABS: PLATELET COUNT 205 10^3/UL (140-415); POSITIVE DIFF @See below
[2017-04-14] MEDS: DONEPEZIL 10 MG TAB PO SCH (09:28)
[2017-04-14] MEDS: LEVETIRACETAM 250 MG TAB PO SCH ×2 (09:28→21:56)
[2017-04-14] MEDS: FAMOTIDINE 20 MG TAB PO SCH (09:28)
[2017-04-14] MEDS: MEMANTINE 10 MG TAB PO SCH (09:28)
[2017-04-14] MEDS: LISINOPRIL 10 MG TAB PO SCH (09:29)
[2017-04-14 11:46] LABS: CALCIUM 9.7 mg/dl (8.4-10.2); CREATININE 0.6 mg/dl (0.44-1.00); POTASSIUM 4.1 mmol/L (3.5-5.1)
--- NOTE | 2017-04-14 14:57 | CONS ---
Date/Time of Note Date/Time of Note DATE: 04/14/17 TIME: 14:55 Assessment/Plan Assessment/Plan Chief Complaint/Hosp Course This is an 81-year-old female with: 1. Bilateral Acute on chronic subdural hematomas with minimal bleed and compression due to underlying atrophy. 2. Hypertension.controlled 3. Alzheimer's dementia. PLAN: - Repeat CT head stable - Spoke to Medical records about notes with Dr Contreras - Spoke to family about discussion with SNIF, family refuses it completely - Keppra per Neuro - PT today - No blood thinners Problems: Consultation Date/Type/Reason Admit Date/Time Apr 09, 2017 at 15:26 Initial Consult Date 04/10/17 Type of Consultation: primary Referring Provider: TANVIR BARCLAY MD 24 HR Interval Summary Free Text/Dictation No complains per family, off restraints Exam/Review of Systems Vital Signs Vitals Vital Signs Date Time Temp Pulse Resp B/P Pulse Ox O2 Delivery O2 Flow Rate FiO2 04/14/17 12:00 69 04/14/17 11:24 98.0 19 117/56 100 04/14/17 06:00 Room Air Intake and Output 04/13/17 04/13/17 04/14/17 15:00 23:00 07:00 Intake Total 1040 ml 550 ml Balance 1040 ml 550 ml Exam wake thin appears stated ageonly oriented to her name CN: CASSY blinks to threat no facial asymmetry, pupils 3-2 mm Motor: anti-gravity in both arms and legs w/d appropriately Reflexes 2+ CVS: Regular rate and rthym Resp:CTAB Abdomen:soft, non tender Results Result Diagram: 04/14/17 0721 04/14/17 1039 Results 24 hrs Laboratory Tests Test 04/14/17 07:21 04/14/17 10:39 White Blood Count 7.5 # Red Blood Count 3.42 L Hemoglobin 10.2 L Hematocrit 32.1 L Mean Corpuscular Volume 93.9 Mean Corpuscular Hemoglobin 29.8 Mean Corpuscular Hemoglobin Concent 31.8 L Red Cell Distribution Width 13.3 Platelet Count 205 # Mean Platelet Volume 11.4 H Neutrophils % 59.0 Lymphocytes % 25.7 Monocytes % 8.7 Eosinophils % 5.4 Basophils % 0.5 Nucleated Red Blood Cells % 0.0 Neutrophils # 4.4 Lymphocytes # 1.9 Monocytes # 0.7 Eosinophils # 0.4 Basophils # 0.0 Nucleated Red Blood Cells # 0.0 Sodium Level 139 Potassium Level 4.1 Chloride Level 104 Carbon Dioxide Level 28 Anion Gap 11 Blood Urea Nitrogen 12 Creatinine 0.60 Glucose Level 143 Calcium Level 9.7 Medications Medications Current Medications Ondansetron HCl (Zofran Inj) 4 mg Q6H PRN IV NAUSEA AND/OR VOMITING; Start at 17:00 Acetaminophen (Tylenol Tab) 650 mg Q6H PRN PO PAIN LEVEL 1-3 OR FEVER; Start 04/09/17 at 17:00 Magnesium Hydroxide (Milk Of Mag) 30 ml DAILY PRN PO CONSTIPATION; Start 04/09 at 17:00 Donepezil HCl (Aricept) 10 mg DAILY PO Last administered on 04/14/17 09:28; Admin Dose 10 MG; Start 04/10/17 at 09:00 Lisinopril (Zestril) 10 mg DAILY PO Last administered on 04/14/17 09:29; Admin Dose 10 MG; Start 04/10/17 at 09:00 Memantine (Namenda) 10 mg DAILY PO Last administered on 04/14/17 09:28; Admin Dose 10 MG; Start 04/10/17 at 09:00 Levetiracetam (Keppra) 250 mg BID PO Last administered on 04/14/17 09:28; Admin Dose 250 MG; Start 04/11/17 at 21:00 Famotidine 20 mg 20 mg DAILY PO Last administered on 04/14/17 09:28; Admin Dose 20 MG; Start 04/12/17 at 09:00 Dextrose (D5W) 1,000 ml @ 40 mls/hr Q24H IV Last administered on 04/13/17 16 :05; Admin Dose 40 MLS/HR; Start 04/12/17 at 16:00 TANVIR BARCLAY MD Apr 14, 2017 14:57
[2017-04-15] VITALS (12 sets, daily range): BP systolic 96–171; BP diastolic 46–86; PULSE 74–112; RESP 17–19
[2017-04-15] MEDS: DONEPEZIL 10 MG TAB PO SCH (09:21)
[2017-04-15] MEDS: MEMANTINE 10 MG TAB PO SCH (09:21)
[2017-04-15] MEDS: FAMOTIDINE 20 MG TAB PO SCH (09:21)
[2017-04-15] MEDS: LISINOPRIL 10 MG TAB PO SCH (09:21)
[2017-04-15] MEDS: LEVETIRACETAM 250 MG TAB PO SCH (09:24)
--- NOTE | 2017-04-15 14:59 | PDOCDIS ---
Discharge Instructions DIAGNOSIS Discharge Diagnosis Subacute to chronic subdural CONDITION Patient Condition: Fair HOME CARE INSTRUCTIONS: Diet Instructions: Low Fat /CholesterolSpecial Diet: MECHANICAL SOFT ACTIVITY: Activity Restrictions: Rest between Activity FOLLOW UP/APPOINTMENTS Follow-up Plan f/u PCP IN 2 WEEKS Pt needs repeat CT head in 3-4 weeks F/u Neurosugery as outpatient in 2-3 weeks TANVIR BARCLAY MD Apr 15, 2017 14:59
[2017-04-15] MEDS ORDERED: MEMA10TA20 PO (15:01)
[2017-04-15] MEDS ORDERED: LISI10TA2 PO (15:01)
[2017-04-15] MEDS ORDERED: DONE10TA33 PO (15:01)
--- NOTE | 2017-04-16 11:25 | DS ---
DATE OF ADMISSION: 04/09/2017 DATE OF DISCHARGE: 04/15/2017 HISTORY OF PRESENT ILLNESS AND HOSPITAL COURSE: This is an 81-year-old woman with past medical hist ory of Alzheimers and hypertension. She presented to Hospital 3 days ago secondary to headach es for past few months. The patient was seen by who ordered MRI. MRI head showed subdural he matoma and she was referred to ER at Hospital. A CT of the head was done that shows subdural hematoma and patient was admitted to ICU. The patient was seen by neurosurgery and neurology. Elizabeth use of small bleed there was no need for surgical intervention. The patient was kept on Keppra and also was started on IV steroids. Repeat CT of the head done there showed change in size and [facility] . The patient was admitted to unit. The michelle ent was continued on home medications. The patient was seen by for neurology consultation . Plan was to continue off , avoid an NSAIDS, Keppra will be put off and we ordered repeat CT of the head that was done here on that showed moderate size , widest diameter up to 1.3. , cortical atrophy, probable small right sided subacute chronic parietal subdural hematoma. __ ___ reconstruction. The patient also had repeat brain CT on that shows subacute and chronic bi lateral hematoma, largest on the left and not particularly changed in size. No evidence of __ ___ or midline shift. The patient was also seen by neurosurgery consultation by Dr. Contreras. He had a great discussion with the family, and since the patient had a baseline neurological status of base line dementia without any focal neurological deficit, given the relatively small size and stable lef t frontal subacute chronic subdural hematoma, there is no neurosurgical intervention needed. , the patient can be discharged home with followup CT scan in about 3 to 4 weeks. Spoke to the famil y in great detail about patient going to rehab; however, they absolutely refused. The family said t hat they will be having 24-hour assistance at home and would rather take the patient home. The michelle ent was seen by PT and per recommendations, patient can go home with home physical therapy. FINAL DISCHARGE DIAGNOSES: 1. Moderate size [id number] subdural hematoma with widest diameter of 1.3 centimeters. 2. Small right subacute chronic right subdural hematoma measuring 5 mm. 3. Alzheimer dementia. 4. Anemia. 5. Hyponatremia, resolved. 6. Hypertension. DISCHARGE INSTRUCTIONS: 1. The patient was instructed to follow with PCP in 2 weeks. [facility] Medications sent home were Keppra 250 mg p.o. t.i.d. for 14 days, Aricept 10 mg p.o. daily, , Namenda 10 mg p.o. daily. Arrangement was made for a repeat CT scan in 3 to 4 weeks and fol low up with neurosurgery as an outpatient in 2 to 3 weeks. The family was instructed to bring the p atient to the ER if she develops headaches, . Dictated By: TANVIR PASCUAL/ISAAK Conf#: [id number] DID#: [id number]
== END 2017-04-15 19:31 | disposition home health service (06) | DRG 65 ==
LOC: MS4 15:26
PROVIDERS: ADMIT Internal Medicine Nephrology; ATTEND Internal Medicine Nephrology
DX: I62.01 Nontraumatic acute subdural hemorrhage (principal); R64 Cachexia; G30.9 Alzheimer's disease, unspecified; R65.10 Systemic inflammatory response syndrome (SIRS) of non-infectious origin without acute organ dysfunction; F02.80 Dementia in other diseases classified elsewhere, unspecified severity, without behavioral disturbance, psychotic disturbance, mood disturbance, and anxiety; E87.1 Hypo-osmolality and hyponatremia; D64.9 Anemia, unspecified; I62.03 Nontraumatic chronic subdural hemorrhage; Z68.23 Body mass index [BMI] 23.0-23.9, adult; I10 Essential (primary) hypertension; Z88.0 Allergy status to penicillin
CPT/HCPCS: 70450; 80048; 80053; 83605; 83735; 84100; 85025; 97116; 97162; 97530; G0378; J7070

== ENCOUNTER 2018-12-11 10:30 | Emergency (ER) | payer OTHER ==
[~2018-12-11] VITALS: Ht 137.2 cm; Wt 37.4 kg
[~2018-12-11 10:30] MED LIST: DONE10TA58 PO; LISI10TA2 PO; MEMA10TA20 PO
[2018-12-11 10:35] VITALS: Ht 137.2 cm; Wt 37.4 kg
[2018-12-11] MEDS ORDERED: SILV20CR12 TOP (11:05)
--- NOTE | 2018-12-11 11:09 | ERD ---
ER Documentation Chief Complaint Chief Complaint RT FOOT WOUND X6 DAYS (NON-DIABETIC) HPI 83 presents the emergency department with her family for evaluation of a foot wound. There is no known trauma. The family noted the wound today. There is no fevers or chills or limitation of range of motion. She is been able to ambulate without difficulty. ROS All systems reviewed and are negative except as per history of present illness. Medications Home Meds Active Scripts Silver Sulfadiazine* (Silvadene*) 1% - 20 Gm Cream.gm., 1 APPLIC TOP TID for 5 Days, #1 TUB Prov:LOLI TABOR 12/11/18 Memantine HCl (Memantine HCl) 10 Mg Tablet, 10 MG PO DAILY for 30 Days, TAB Prov:TANVIR BARCLAY MD 04/15/17 Donepezil HCl (Aricept) 10 Mg Tablet, 10 MG PO DAILY for 30 Days, TAB Prov:TANVIR BARCLAY MD 04/15/17 Lisinopril* (Lisinopril*) 10 Mg Tablet, 10 MG PO DAILY for 30 Days, TAB Prov:TANVIR BARCLAY MD 04/15/17 Allergies Allergies: Coded Allergies: Penicillins (Verified Allergy, Unknown, 04/09/17) PMhx/Soc History of Surgery: Yes Anesthesia Reaction: No Hx Neurological Disorder: Yes (dementia/alzheimers) Hx Respiratory Disorders: No Hx Cardiac Disorders: Yes Hx Miscellaneous Medical Probl: No Hx Alcohol Use: No Hx Substance Use: No Hx Tobacco Use: No Smoking Status: Never smoker Physical Exam Vitals Vital Signs Date Temp Pulse Resp B/P (MAP) Pulse Ox O2 O2 Flow FiO2 Time Delivery Rate 12/11/18 97.5 70 16 140/61 98 10:35 (87) Physical Exam GENERAL: Frail, elderly female in no acute distress HEENT: Pupils equal, round, and reactive to light. EOMI. There is no scleral icterus. NECK: C-spine is soft and supple, there is no meningismus. There is no cervical lymphadenopathy. LUNGS: Clear to auscultation bilaterally. There are no rales, wheezes or rhonchi. HEART: Regular rate and rhythm, no murmurs, clicks, rubs or gallops. ABDOMEN: Soft, non-tender, non-distended. There are bowel sounds in all four quadrants. No rebound or guarding. EXTREMITIES: There is no peripheral cyanosis or edema. No focal swelling or erythema. Full range of motion about all extremities. NEURO: The patient moves all four extremities with 5/5 strength. Cranial nerves II - XII are intact. Normal gait. Alert and follows commands but with an underlying dementia SKIN: There is no apparent rash or petechiae. There is a small wound on the lateral aspect of the foot. Mild cellulitic changes. No crepitus. HEME/LYMPHATIC: There is no evidence of excessive bruising or lymphedema. PSYCHIATRIC: The patient does not appear anxious or depressed. Procedures/MDM Patient was taken to a room, seen and examined. An antibiotic dressing was applied to the wounds Medical decision makin-year-old female presents the emergency department with what appears to be a small wound on her foot. At this time I see no evidence of vascular abnormalities, significant cellulitis or infection. Given patient's age, she is appropriate for outpatient supportive care with antibiotic ointment prescription. Departure Diagnosis: Primary Impression: Injury of foot Condition: Stable Patient Instructions: Wound Care Referrals: DANY MEHTA (PCP) Additional Instructions: Please see your doctor or return here in 2 days to recheck the wound LOLI TABOR Dec 11, 2018 11:09
[2018-12-11 11:23] VITALS: BP 132/61; PULSE 88; RESP 16
== END 2018-12-11 11:34 | disposition home or self-care (01) ==
LOC: E/R 10:30
DX: S99.921A Unspecified injury of right foot, initial encounter (principal); G30.9 Alzheimer's disease, unspecified; X58.XXXA Exposure to other specified factors, initial encounter; Y92.9 Unspecified place or not applicable
CPT/HCPCS: 99283